=== PATIENT | female | born 1975 | race Caucasian/White ===

== ENCOUNTER 2021-07-02 22:58 | Observation (INO) ==
[2021-07-02] MEDS ORDERED: 0.9 % Sodium Chloride 1,000 ML IVC ONE (23:23)
[2021-07-02] MEDS ORDERED: Ondansetron 4 MG/2 ML VIAL IVP ONE (23:38)
[2021-07-02] MEDS ORDERED: *HR* HYDROmorphone (PF) 1 MG/ML SYRINGE IVP ONE (23:38)
[2021-07-02 23:39] LABS: Bilirubin,Urine Negative (Negative); Blood,Urine Negative (Negative); Clarity,Urine Turbid (Clear); Color,Urine Yellow (Yellow); Glucose,Urine (UA) Normal (Normal); Ketones,Urine Negative (Negative); Leukocyte Esterase,Urine Negative (Negative); Mucus,Urine Few per lpf (None-Few); Nitrite,Urine Negative (Negative); Protein,Urine Trace mg/dL (Neg-Trace); Specific Gravity,Urine 1.022 (1.010-1.025); Squamous Epithelial Cell,Urine Few per hpf (None-Few); Urobilinogen,Urine Normal (Normal); WBC,Urine 15-30 per hpf (0-3)
[2021-07-02 23:55] LABS: Basophils % 0.3 %; Eosinophils # 0.2 K/mcL (0.0-0.6); Eosinophils % 1.5 %; Hematocrit 44.9 % (35.3-44.9); Hemoglobin 15.4 g/dL (11.5-15.4); Immature Granulocytes % 0.3 % (0-4); Lymphocytes # 1.2 K/mcL (0.6-4.6); Lymphocytes % 8.8 %; Mean Corpuscular HGB Conc 34.3 g/dL (31.6-35.5); Mean Corpuscular Hemoglobin 31.8 pg (28.0-33.3); Mean Corpuscular Volume 92.8 fL (83.0-100.0); Mean Platelet Volume 10.4 fL (9.4-12.4); Monocytes # 1.1 K/mcL (0.0-1.3); Monocytes % 7.8 %; Neutrophils # 11.1 K/mcL (1.6-8.9); Platelet Count 219 K/mcL (140-400); Red Blood Count 4.84 M/mcL (3.82-4.97); Red Cell Distribution Width 12.2 % (11.5-14.5); Segmented Neutrophils % 81.3 %; White Blood Count 13.7 K/mcL (4.3-11.1)
[2021-07-03 00:31] LABS: Alanine Aminotransferase 32 Units/L (7-52); Albumin 4.5 g/dL (3.5-5.7); Albumin/Globulin Ratio 1.7 (1.1-2.2); Alkaline Phosphatase 55 Units/L (34-104); Aspartate Amino Transferase 47 Units/L (13-39); BUN/Creatinine Ratio 17 (6-26); Bilirubin,Direct 0.1 mg/dL (0.0-0.2); Bilirubin,Indirect 0.8 mg/dL (0.0-1.0); Bilirubin,Total 0.9 mg/dL (0.3-1.0); Blood Urea Nitrogen 13 mg/dL (6-20); Calcium 8.9 mg/dL (8.6-10.3); Carbon Dioxide 20 mEq/L (23-29); Chloride 104 mEq/L (98-107); Globulin 2.7 g/dL (2.4-3.5); Glucose 111 mg/dL (70-105); Lipase 23 Units/L (11-82); Osmolality,Calculated 283 (280-300); Potassium 4.4 mEq/L (3.5-5.1); Sodium 136 mEq/L (136-145); Total Protein 7.2 g/dL (6.4-8.9); eGFR For African Americans > 60 (> 60); eGFR For Non-African Americans > 60 (> 60)
[2021-07-03] MEDS ORDERED: Morphine Sulfate 2 MG/ML SYRINGE IVP ONE (00:47)
[2021-07-03] MEDS ORDERED: Naloxone 0.4 MG/ML INJ IVP PRN ×3 (00:53→13:17)
[2021-07-03] MEDS ORDERED: Ondansetron 4 MG/2 ML VIAL IVP PRN ×3 (00:53→13:17)
[2021-07-03] MEDS ORDERED: *HR* Promethazine 25 MG/ML VIAL IM PRN ×2 (00:53→13:17)
[2021-07-03] MEDS ORDERED: Melatonin 3 MG TABLET PO PRN ×2 (00:53→13:17)
[2021-07-03] MEDS ORDERED: *HR* HYDROmorphone (PF) 1 MG/ML SYRINGE IVP ONE ×2 (02:42→08:04)
[2021-07-03 05:08] LABS: Basophils % 0.3 %; Eosinophils # 0.1 K/mcL (0.0-0.6); Eosinophils % 0.5 %; Hematocrit 41.7 % (35.3-44.9); Hemoglobin 14.2 g/dL (11.5-15.4); Immature Granulocytes % 0.4 % (0-4); Lymphocytes # 0.7 K/mcL (0.6-4.6); Lymphocytes % 5.5 %; Mean Corpuscular HGB Conc 34.1 g/dL (31.6-35.5); Mean Corpuscular Hemoglobin 31.4 pg (28.0-33.3); Mean Corpuscular Volume 92.3 fL (83.0-100.0); Mean Platelet Volume 10.2 fL (9.4-12.4); Monocytes # 0.9 K/mcL (0.0-1.3); Monocytes % 6.6 %; Neutrophils # 11.1 K/mcL (1.6-8.9); Platelet Count 178 K/mcL (140-400); Red Blood Count 4.52 M/mcL (3.82-4.97); Red Cell Distribution Width 12.2 % (11.5-14.5); Segmented Neutrophils % 86.7 %; White Blood Count 12.9 K/mcL (4.3-11.1)
[2021-07-03 05:25] LABS: BUN/Creatinine Ratio 16 (6-26); Blood Urea Nitrogen 10 mg/dL (6-20); Calcium 8.2 mg/dL (8.6-10.3); Carbon Dioxide 20 mEq/L (23-29); Chloride 108 mEq/L (98-107); Glucose 123 mg/dL (70-105); Osmolality,Calculated 284 (280-300); Potassium 3.6 mEq/L (3.5-5.1); Sodium 137 mEq/L (136-145); eGFR For African Americans > 60 (> 60); eGFR For Non-African Americans > 60 (> 60)
[2021-07-03] MEDS ORDERED: *HR* FentaNYL (PF) 100 MCG/2 ML VIAL IVP ONE (08:11)
[2021-07-03] MEDS ORDERED: Acetaminophen IV 1,000 MG/100 ML BAG IVPB ONE (08:11)
[2021-07-03] MEDS ORDERED: ceFAZolin 2,000 MG in 0.9 % Sodium Chloride 100 ML IVPB ONE (08:12)
[2021-07-03] MEDS ORDERED: 0.9 % Sodium Chloride 1,000 ML IVC SCH (08:15)
[2021-07-03] MEDS ORDERED: Isovue-300 50ML VIAL ONE (09:25)
[2021-07-03] MEDS ORDERED: *HR* Midazolam HCl 2 MG/2 ML VIAL ONE (09:49)
[2021-07-03] MEDS ORDERED: Lidocaine -MPF 4% 5 ML AMPUL ONE (09:49)
[2021-07-03] MEDS ORDERED: *HR* Rocuronium Bromide 50 MG/5 ML VIAL ONE (09:49)
[2021-07-03] MEDS ORDERED: *HR* Propofol 200 MG/20 ML VIAL IVP ONE (09:49)
[2021-07-03] MEDS ORDERED: *HR* Succinylcholine 200 MG/10 ML VIAL IVP ONE (09:49)
[2021-07-03] MEDS ORDERED: Lidocaine -MPF 2% 5 ML VIAL ONE (09:49)
[2021-07-03] MEDS ORDERED: *HR* FentaNYL (PF) 100 MCG/2 ML VIAL IVP PRN (09:50)
[2021-07-03] MEDS ORDERED: *HR* HYDROmorphone (PF) 1 MG/ML SYRINGE IVP PRN (09:50)
[2021-07-03] MEDS ORDERED: Albuterol 2.5 MG/3 ML NEBULIZER IH PRN (09:50)
[2021-07-03] MEDS ORDERED: Nitroglycerin 0.4 MG TAB.SUBL SL PRN (09:50)
[2021-07-03] MEDS ORDERED: *HR* FentaNYL (PF) 100 MCG/2 ML VIAL ONE (10:38)
[2021-07-03] MEDS ORDERED: Ketamine HCL *QUVA* 50mg (1mL) SYRINGE ONE (11:03)
[2021-07-03] MEDS ORDERED: *HR* Magnesium Sulfate 1 GM/2 ML VIAL ONE (11:04)
[2021-07-03] MEDS ORDERED: Sugammadex Sodium 200 MG/2 ML VIAL IV ONE (11:38)
[2021-07-03] MEDS ORDERED: *HR* HYDROMORPHONE 2 MG/ML VIAL ONE (11:55)
[2021-07-03] MEDS: Piperacillin/Tazobactam 3.375 GM in 0.9 % Sodium Chloride Mini Bag 100 ML IVPB SCH (15:34)
[2021-07-03] MEDS: 0.9 % Sodium Chloride 1,000 ML IVC SCH (15:35)
[2021-07-03] MEDS ORDERED: Piperacillin/Tazobactam 3.375 GM in 0.9 % Sodium Chloride Mini Bag 100 ML IVPB SCH (16:00)
[2021-07-03] MEDS: Ketorolac 30 MG/ML VIAL IVP SCH (16:59)
[2021-07-03] MEDS: Acetaminophen IV 1,000 MG/100 ML BAG IVPB SCH (16:59)
[2021-07-03] MEDS ORDERED: traZODone 50 MG TABLET PO SCH (22:15)
[2021-07-03] MEDS: valACYclovir 500 MG TABLET PO SCH (22:29)
[2021-07-04] MEDS: Ketorolac 30 MG/ML VIAL IVP SCH ×2 (00:15→06:23)
[2021-07-04] MEDS: Acetaminophen IV 1,000 MG/100 ML BAG IVPB SCH ×2 (00:16→06:24)
[2021-07-04] MEDS: Piperacillin/Tazobactam 3.375 GM in 0.9 % Sodium Chloride Mini Bag 100 ML IVPB SCH ×2 (00:17→08:43)
[2021-07-04] MEDS: 0.9 % Sodium Chloride 1,000 ML IVC SCH (03:37)
[2021-07-04] MEDS: valACYclovir 500 MG TABLET PO SCH (08:44)
[2021-07-04] MEDS ORDERED: Cholecalciferol (D-3) 1,000 UNIT (25MCG) TABLET PO SCH (09:00)
[2021-07-04] MEDS ORDERED: Thyroid (Amour) 30 MG TABLET PO SCH (09:00)
[2021-07-04 11:41] VITALS: BP 98/63; PULSE 89; TEMP 98.1; O2SAT 96
== END 2021-07-04 11:50 | disposition home or self-care (01) ==
LOC: 3ANU 22:58 → EMEROOARM 22:58 → SUATTDRO 07-03 01:12 → 3ANU 07-03 01:30
PROVIDERS: ADMIT Internal Medicine; ATTEND Internal Medicine